=== PATIENT | male | born 1945 | race Caucasian/White ===

== ENCOUNTER 2025-09-21 08:13 | Day surgery (SDC) | payer OTHER ==
[2025-09-21] VITALS (12 sets, daily range): BP systolic 119–154; BP diastolic 65–100
[~2025-09-21] VITALS: Ht 175.3 cm; Wt 76.7 kg
[~2025-09-21 08:13] MED LIST: ALBU90I INH; AMLO5 PO; ASPI325 PO; AZIT250 PO; CEPH500 PO; CeFAZolin Sodium 2,000 MG in NS 100 ML IV SCH; GLUCHON PO; HYDACE5 PO; MULVITMIND PO; TOCO400 PO; VITB100 PO
--- NOTE | 2025-09-21 09:20 | NUR ---
PT HAS SMALL 3CM LINE SCRATCH ON R INGUINAL AREA THAT WAS PRESENT BEFORE SHAVE PREP. WHEN SHAVING WITH RAZOR IN PREOP A SMALL 2CM BY 3CM AREA ON L LOWER ABD BEGAN TO SHOW SMALL RED ABRASIONS. DR. CONNORS MADE AWARE, OKAY TO PROCEED.
[2025-09-21] MEDS ORDERED: FentaNYL Citrate 50 MCG/ML 2 ML Injection ONE (09:42)
[2025-09-21] MEDS ORDERED: Rocuronium Bromide 10 MG/ML 5ML Injection IV ONE ×2 (09:43→11:10)
[2025-09-21] MEDS ORDERED: Bupivacaine 0.5% W/EPI 1:200000 SDV 30 ML Vial ONE (09:48)
[2025-09-21] MEDS ORDERED: Dexamethasone Sod Phos 10 MG/ML 1ML VIAL ONE (10:13)
[2025-09-21] MEDS ORDERED: Ondansetron HCl 2 MG / ML 2ML Vial ONE (10:13)
[2025-09-21] MEDS ORDERED: FentaNYL Citrate 50 MCG/ML 2 ML Injection IV PRN (10:30)
[2025-09-21] MEDS ORDERED: Albuterol 2.5 MG/3 ML VIAL INH PRN (10:35)
[2025-09-21] MEDS ORDERED: HYDROmorphone HCl/Pf 1MG SYR IV PRN ×2 (10:35)
[2025-09-21] MEDS ORDERED: Metoclopramide HCl 5MG / ML 2ML Vial IV PRN (10:35)
[2025-09-21] MEDS ORDERED: Ketorolac Tromethamine 30mg Vial IV PRN (10:40)
[2025-09-21] MEDS ORDERED: HYDROmorphone HCl/Pf 1MG SYR ONE ×2 (11:58→13:05)
[2025-09-21] MEDS ORDERED: Glycopyrrolate 0.2 MG/ML 5ML VIAL ONE (12:07)
[2025-09-21] MEDS ORDERED: Sugammadex Sodium 200 MG/2ML SDV (100 MG/ML) ONE (12:34)
[2025-09-21] MEDS ORDERED: OxyCODONE 5 mg/Acetamin 325 mg TABLET PO PRN (14:05)
--- NOTE | 2025-09-21 14:18 | NUR ---
PT RECEIVED ONE PECOCET FOR PAIN AND REGLAN FOR NAUSEA. NAUSEA RESOLVED. INCISONS X3 REMQAIN CDI. PT ABLE TO DRESS SLEF AND AMBULATE WITH STEADY GAIT. Patient States Post-Procedure ride home has been arranged. Discharged via wheelchair to private car for ride home. Discharge instructions reviewed with patient. Patient verbalizes understanding. Copy given to patient to take home. ALL BELONINGS RETUNRED TO PATIENT.
== END 2025-09-21 22:00 | disposition home or self-care (01) ==
LOC: ORSCMMR 08:13 → ORD 10:00 → ORSCMMR 10:00
PROVIDERS: Surgery
PROC: 3E0T3BZ Introduction of Anesthetic Agent into Peripheral Nerves and Plexi, Percutaneous Approach (ICD-10-PCS; principal; 2025-09-21 10:00)
PROC: 0WUF4KZ Supplement Abdominal Wall with Nonautologous Tissue Substitute, Percutaneous Endoscopic Approach (ICD-10-PCS; principal; 2025-09-21 10:00)
PROC: 8E0W4CZ Robotic Assisted Procedure of Trunk Region, Percutaneous Endoscopic Approach (ICD-10-PCS; principal; 2025-09-21 10:00)
PROC: 0WUF4JZ Supplement Abdominal Wall with Synthetic Substitute, Percutaneous Endoscopic Approach (ICD-10-PCS; principal; 2025-09-21 10:00)
PROC: 0YUA4JZ Supplement Bilateral Inguinal Region with Synthetic Substitute, Percutaneous Endoscopic Approach (ICD-10-PCS; principal; 2025-09-21 10:00)
PROC: 0YU84JZ Supplement Left Femoral Region with Synthetic Substitute, Percutaneous Endoscopic Approach (ICD-10-PCS; principal; 2025-09-21 10:00)
DX: K40.00 Bilateral inguinal hernia, with obstruction, without gangrene, not specified as recurrent (principal); K45.0 Other specified abdominal hernia with obstruction, without gangrene; K41.30 Unilateral femoral hernia, with obstruction, without gangrene, not specified as recurrent; K42.0 Umbilical hernia with obstruction, without gangrene; K66.0 Peritoneal adhesions (postprocedural) (postinfection); I10 Essential (primary) hypertension; Z79.899 Other long term (current) drug therapy
CPT/HCPCS: A9270; C1781; J0690; J1100; J1171; J2405; J2704; J2765; J3010; J7120